=== PATIENT | female | born 1980 | race Caucasian/White ===

== ENCOUNTER 2018-03-27 05:31 | Day surgery (SDC) | payer OTHER ==
[~2018-03-27] VITALS: Ht 162.6 cm; Wt 54.6 kg
--- NOTE | ~2018-03-27 | O ---
[address] [address] OPERATIVE REPORT Name: KYLE GAINES Room #: 150-2 [facility]#: [id number] Admission: 03/27/18 Attend Phys: Manny Humphries MD Discharge: Date of : 82 Report #: [id number] THIS REPORT FOR: //name// CC: Fay VasiliyAbran Humphries DATE OF SERVICE: 03/27/2018 SERVICE: Orthopedics. FACILITY: [facility]. SURGEON: Manny Humphries MD. HOTEL REGISTRATION CLERK: Melia Epps NP. INDICATIONS: Extremity positioning, suture management and assistance with repair. PREOPERATIVE DIAGNOSES: 1. Right hip pain. 2. Right hip combined type femoroacetabular impingement. 3. Right hip labral tear. POSTOPERATIVE DIAGNOSES: 1. Right hip pain. 2. Right hip combined type femoroacetabular impingement. 3. Right hip labral tear. PROCEDURE: 1. Right hip arthroscopic labral repair. 2. Right hip arthroscopic Cam osteochondroplasty. 3. Right hip limited focal subspine acetabuloplasty. COMPLICATIONS: None. DRAINS: None. SPECIMENS: None. ANESTHESIA TYPE: General with regional. FINDINGS: 1. [place] CinchLock suture anchor x 2 with NanoTack suture anchor laterally x 1. 2. Chondral labral junction disruption secondary to the Cam deformity noted and [address] [address] OPERATIVE REPORT Name: KYLE GAINES Room #: 150-2 [facility]#: [id number] Admission: 03/27/18 Attend Phys: Manny Humphries MD Discharge: Date of : 82 Report #: [id number] treated with debridement. This was partial thickness about 10-15% thickness. 3. Large Cam bump treated with osteochondroplasty. HISTORY AND INDICATIONS: The patient is a 37-year-old female with a history of persistent progressive right hip pain that failed conservative measures including rest, activity modifications, medications, injections and physical therapy. Despite this, she continued to have pain. She had imaging consistent with SULEMA with a [place], grade of 0. A labral tear on an MRI, a large Cam bump as well as a small focal crossover sign. Risks, benefits, alternatives and indications for surgical treatment were eventually discussed with her after she elected to undergo definitive treatment. Risks include but not limited to pain, bleeding, infection, injury to nerves or blood vessels, persistent pain despite surgical intervention, failure of any repairs, reconstruction, progression of any preexisting chondral injury, stiffness, need for further surgery as well as complications related to anesthesia such as stroke, heart attack, pulmonary complications, thromboembolic disease and . Despite these risks, she wished to proceed. PROCEDURE IN DETAIL: After right lower extremity was correctly identified in the preoperative holding area as the operative extremity, the patient underwent placement of a single shot regional nerve block. She was then taken to the operating room where general anesthesia was induced without complication. She was padded appropriately. Prophylactic antibiotics were administered at appropriate time. She was placed in traction boots to bilateral lower extremities. The right hip femoral head and neck junction was mapped out under fluoroscopy showed a very large distal neck Cam bump that was identified in its full extent and then the right hip was prepped and draped in standard sterile fashion. Time-out procedure was performed. Traction was applied to the right lower extremity. Total traction time was approximately 44 minutes. Standard anterolateral portal as well as anterior medial working portal was established in typical fashion under fluoroscopic guidance and then transverse capsulotomy was performed. There was synovitis present as well as erythema and this was treated with debridement. The capsule was reflected off the dorsal side of the labrum. There was a labral tear at the chondral labral junction anterosuperiorly and then extending laterally more. The pathology laterally was some fraying of the cartilage as well as fraying of the undersurface of the labrum likely from the Cam deformity. The labrum was mobile in this location as well. The capsule was therefore reflected off the dorsal side of the labrum allowing access to the very focal subspine impingement lesion which was treated with recession with the bur and then the acetabular rim was abraded with the bur to generate a bleeding surface for re-fixation and healing. The first two anchors were placed in a typical fashion with the [place] CinchLock suture anchor with a simple suture technique first and a mattress suture technique on the 2nd providing good stability of the labrum and then the [employer] NanoTack with tape was utilized to provide a better trajectory and secure repair [address] [address] OPERATIVE REPORT Name: KYLE GAINES Room #: 150-2 [facility]#: [id number] Admission: 03/27/18 Attend Phys: Manny Humphries MD Discharge: Date of : 82 Report #: [id number] of the lateral aspect of the labral tear. Traction was then let down. Attention was turned towards the peripheral compartment. The hip was flexed. The bur was used to perform resection of the Cam deformity under direct arthroscopic visualization without any significant complications. Note that, she was noted to have on the preoperative imaging a rather large cyst at the head and neck junction on the femur and we had prepared to bone graft this if necessary as well as decompress it as well as limit her weightbearing. There was a good cortication of the bone around the cyst and the cyst did not actually participate in the Cam deformity itself and so removing the Cam allowed visualization of the very superficial aspect of the cyst, but this was not a hollow or fatty filled cyst and it was not fluid filled either, was structurally sound with a cortical perimeter on a thin residual bony layer over the top. After the contouring of the Cam deformity was completed, the instruments were removed from the hip. The fluoroscopy was used to perform a complete assessment of the femoral head and neck junction to confirm that complete resection had been performed. There was no evidence of pathology associated with the cyst. The instruments were placed back into the hip and then the capsule was closed with a total of four #2 Vicryl suture in the typical fashion. Note that the T-shaped capsulotomy was required in order to obtain access to the distal Cam and entire T-shape capsulotomy was closed. Instruments were then removed. Portal sites were closed with a Monocryl stitch. Sterile dressing was applied. The patient was awakened from anesthesia and taken to recovery room in stable condition. There were no complications. All counts recorded as correct. <ELECTRONICALLY SIGNED> By: Manny Humphries MD 03/27/182015 1747 04 Manny Humphries MD /nt
[~2018-03-27 05:31] MED LIST: ADVAIR HFA 230M12 GM INH; CRANBERRY200 MG PO; LOVASTATIN 20 M20 MG PO; SINGULAIR 10 MG10 M1 PO; TRAZODONE HCL50 MG PO
[2018-03-27 12:30] VITALS: BP 124/79
[2018-03-27 16:02] VITALS: BP 124/79
== END 2018-03-27 18:20 | disposition home or self-care (01) ==
LOC: TBA 05:31 → OR 05:31
DX: S73.191A Other sprain of right hip, initial encounter (principal); M25.851 Other specified joint disorders, right hip; E78.5 Hyperlipidemia, unspecified; J45.909 Unspecified asthma, uncomplicated; E78.00 Pure hypercholesterolemia, unspecified; Z88.0 Allergy status to penicillin; Z79.899 Other long term (current) drug therapy; Z98.890 Other specified postprocedural states; Z90.710 Acquired absence of both cervix and uterus; X58.XXXA Exposure to other specified factors, initial encounter; Y93.89 Activity, other specified; Y92.89 Other specified places as the place of occurrence of the external cause; Y99.8 Other external cause status
CPT/HCPCS: 50010; 50101; 50386; 51538; 55430; 56524; 56527; 57092; 57103; 62110; 62900; 64043; 65060; 70005